=== PATIENT | male | born 1960 | race Caucasian/White ===

== ENCOUNTER → 2025-01-27 11:46 | Outpatient (REF) | payer OTHER, SELFPAY ==
[2025-01-27 13:11] LABS: Hematocrit 41.6 % (39.0-52.0); Hemoglobin 14.3 g/dL (13.0-18.0); Mean Corp Hgb Conc. 34.4 g/dL (33.0-37.0); Mean Corpuscular Volume 82.4 fL (80.0-94.0); Nucleated Red Blood Cells % 0 % (-); Platelet Count 357 10^3/uL (130-400); Red Cell Dist. Width 12.9 % (11.5-14.5)
[2025-01-27 13:52] LABS: Blood Urea Nitrogen 15 mg/dl (9-20); Calcium 9.3 mg/dl (8.4-10.2); Carbon Dioxide 23 mmol/L (22-30); Chloride 106 mmol/L (98-107); Glucose 98 mg/dl (70-99); Potassium 4.2 mmol/L (3.5-5.1); Sodium 139 mmol/L (135-145); eGFR > 60.00
== END ==
LOC: REG 11:46
PROVIDERS: ATTENDING PHYSICIAN Orthopaedic Surgery; FAMILY PHYSICIAN Family Medicine
DX: Z01.818 Encounter for other preprocedural examination (principal)
CPT/HCPCS: 36415; 80048; 85025; 93005

== ENCOUNTER 2025-01-28 06:36 | Day surgery (SDC) | payer OTHER, SELFPAY ==
[2025-01-28 09:14] VITALS: BMI 29.2
[2025-01-28 09:15] VITALS: BP 156/88; BMI 29.2
[2025-01-28] MEDS: NORMOSOL-R/PLASMALYTE-A 1000 IV (09:23)
[2025-01-28] MEDS: TYLENOL 1000 MG PO (09:27)
[2025-01-28] MEDS: CELEBREX 200 MG PO (09:27)
[2025-01-28 11:43] VITALS: BP 105/74
[2025-01-28 11:45] VITALS: BP 109/74
[2025-01-28 12:01] VITALS: BP 126/90
[2025-01-28 12:15] VITALS: BP 128/86
[2025-01-28] MEDS: ROXICODONE 5 MG PO (12:24)
[2025-01-28 12:30] VITALS: BP 119/74
== END 2025-01-28 12:45 | disposition home or self-care (01) ==
LOC: SDS 06:36
PROVIDERS: ATTENDING PHYSICIAN Orthopaedic Surgery
DX: S61.411A Laceration without foreign body of right hand, initial encounter (principal); V29.99XA Rider (driver) (passenger) of other motorcycle injured in unspecified traffic accident, initial encounter
CPT/HCPCS: 11043